=== PATIENT | male | born 1970 | race African-American/Black ===

== ENCOUNTER 2019-08-10 18:34 | Emergency (ER) | payer SELFPAY ==
[~2019-08-10] VITALS: Ht 180.3 cm; Wt 68.1 kg
[2019-08-10] MEDS ORDERED: NEOM10DR32 RIGHT EAR (19:30)
--- NOTE | 2019-08-10 19:31 | PHYS DOC ---
Past Medical History Past Medical History: No Pertinent History (CHELSEA ARMANDO APRN) Past Surgical History: Tonsillectomy, Other Additional Past Surgical Histo: ADENOIDECTOMY (CHELSEA ARMANDO APRN) Smoking Status: Current Every Day Smoker Alcohol Use: Occasionally (CHELSEA ARMANDO APRN) General Adult EDM: Chief Complaint: FOREIGNBODY EAR HPI: HPI: Patient is a 48 year old AA male who presents to the emergency department with complaints of falling from a earbud being stuck in his right ear for 2 days. Patient states 2 days ago when he removed his ear but he noticed that the spongy foam was missing from the earbud. He denies any decreased hearing. Patient denies any discharge or bleeding from his ear. He currently denies any fever, cough, sore throat, body aches, fatigue, headache, nausea, vomiting, diarrhea, abdominal pain, or rash. He currently rates his pain a 2 out of 10 on the pain scale, he denies any alleviating or exacerbating factors. (CHELSEA ARMADNO APRN) Review of Systems: Review of Systems: Constitutional: Denies fever or chills. [] Eyes: Denies change in visual acuity. [] HENT: Denies nasal congestion or sore throat; see HPI. [] Respiratory: Denies cough or shortness of breath. [] Cardiovascular: Denies chest pain or edema. [] GI: Denies abdominal pain, nausea, vomiting, or diarrhea. [] Musculoskeletal: Denies back pain or joint pain. [] Integument: Denies rash. [] Neurologic: Denies headache Lymphatic: Denies swollen glands. [] Psychiatric: Denies depression or anxiety. [] (CHELSEA ARMANDO APRN) Heart Score: Risk Factors: Risk Factors: DM, Current or recent (<one month) smoker, HTN, HLP, family history of CAD, obesity. Risk Scores: Score 0 - 3: 2.5% MACE over next 6 weeks - Discharge Home Score 4 - 6: 20.3% MACE over next 6 weeks - Admit for Clinical Observation Score 7 - 10: 72.7% MACE over next 6 weeks - Early Invasive Strategies (CHELSEA ARMANDO APRN) Allergies: Allergies: Allergies Coded Allergies Type Severity Reaction Last Updated Verified No Known Drug Allergies 08/10/19 No (CHELSEA ARMANDO APRN) Physical Exam: PE: Constitutional: Well developed, well nourished, no acute distress, non-toxic appearance. [] HENT: Normocephalic, atraumatic, bilateral external ears normal, nose normal; left TM normal, right TM normal, there is an abrasion located at 6:00 in the patient's right ear canal, no visible foreign body [] Eyes: PERRLA, EOMI, conjunctiva normal, no discharge. [] Neck: Normal range of motion, no stridor. [] Cardiovascular:Heart rate regular rhythm Lungs & Thorax: Respirations even and unlabored, no retractions, no respiratory distress Abdomen: soft, no tenderness Skin: Warm, dry, no erythema, no rash. [] Extremities: No cyanosis, ROM intact, no edema. [] Neurologic: Alert and oriented X 3, no focal deficits noted. [] Psychologic: Affect normal, judgement normal, mood normal. [] (CHELSEA ARMANDO APRN) Current Patient Data: Vital Signs: Vital Signs Date Time Temp Pulse Resp B/P (MAP) Pulse Ox O2 Delivery O2 Flow Rate FiO2 08/10/19 19:09 98.3 78 16 133/85 (101) 97 Room Air 98.3 (CHELSEA ARMANDO APRN) EKG: EKG: [] (CHELSEA ARMANDO APRN) Radiology/Procedures: Radiology/Procedures: [] (CHELSEA ARMANDO APRN) Course & Med Decision Making: Course & Med Decision Making Pertinent Labs and Imaging studies reviewed. (See chart for details) [] (CHELSEA ARMANDO APRN) Dragon Disclaimer: Dragon Disclaimer: This electronic medical record was generated, in whole or in part, using a voice recognition dictation system. (CHELSEA ARMANDO APRN) Departure Departure Impression: Primary Impression: Abrasion of right ear canal Qualified Codes: S00.411A - Abrasion of right ear, initial encounter Disposition: HOME, SELF-CARE Condition: STABLE Referrals: NO PCP (PCP) Patient Instructions: Ear Foreign Body, [id number] Additional Instructions: There is no foreign body present in your ear today. Fill the prescription and use it as directed. Do not put anything in your ear until your symptoms have resolved completely. Tylenol or ibuprofen as needed for pain. Follow-up with your primary care doctor next week. Return to the ER symptoms worsen. Scripts Neomycin/Polymyxin B Sulf/Hc ([id number] EAR SUSP) 10 Ml Drops.susp 4 DROP RIGHT EAR TID for 5 Days, #10 ML 0 Refills Prov: CHELSEA ARMANDO APRN 08/10/19 Justicifation of Admission Dx: Justifications for Admission: Justification of Admission Dx: N/A (CHELSEA ARMANDO APRN) Attending Signature Attending Signature I have reviewed the PA/APARTMENT MAINTENANCE WORKER's note and plan of care. I was available for consultation as needed during the patient's visit in the emergency department. I agree with the clinical impression, plan, and disposition. (ALY PIMENTEL DO) CHELSEA ARMANDO APRN Aug 10, 2019 19:31 ALY PIMENTEL DO Aug 11, 2019 05:10
[2019-08-10 19:51] VITALS: BP 128/85
== END 2019-08-10 19:51 | disposition home or self-care (01) ==
LOC: ER 18:34
DX: S00.411A Abrasion of right ear, initial encounter (principal); F17.200 Nicotine dependence, unspecified, uncomplicated; Z90.89 Acquired absence of other organs; Z98.890 Other specified postprocedural states; X58.XXXA Exposure to other specified factors, initial encounter; Y93.89 Activity, other specified; Y92.89 Other specified places as the place of occurrence of the external cause; Y99.8 Other external cause status
CPT/HCPCS: 99283

== ENCOUNTER 2019-12-20 09:55 | Emergency (ER) | payer SELFPAY ==
[~2019-12-20] VITALS: Ht 180.3 cm; Wt 68.1 kg
[~2019-12-20 09:55] MED LIST: NEOM10DR32 RIGHT EAR
[2019-12-20 10:11] VITALS: BP 124/72
[2019-12-20] MEDS ORDERED: CARB-171 EACH EAR (10:45)
--- NOTE | 2019-12-20 10:49 | PHYS DOC ---
Past Medical History Past Medical History: No Pertinent History Past Surgical History: Tonsillectomy, Other Additional Past Surgical Histo: ADENOIDECTOMY Smoking Status: Current Every Day Smoker Alcohol Use: Occasionally General Adult EDM: Chief Complaint: FOREIGNBODY EAR HPI: HPI: 49-year-old male who denies any significant past medical history, presents the ED with complaints of foreign body in right ear. Patient states he removed his headphones just prior to arrival and saw that the earbud cover was not on his headphone, has a foreign body sensation in right ear. Denies any hearing loss in either ear. No head injury. Takes no routine medications, on no anticoagulants. Review of Systems: Review of Systems: Constitutional: Denies fever or chills. [] Eyes: Denies change in visual acuity. [] HENT: Denies nasal congestion or sore throat. [] Respiratory: Denies cough or shortness of breath. [] Cardiovascular: Denies chest pain or edema. [] GI: Denies abdominal pain, nausea, vomiting, bloody stools or diarrhea. [] : Denies dysuria. [] Musculoskeletal: Denies back pain or joint pain. [] Integument: Denies rash. [] Neurologic: Denies headache, focal weakness or sensory changes. [] Endocrine: Denies polyuria or polydipsia. [] Lymphatic: Denies swollen glands. [] Psychiatric: Denies depression or anxiety. [] Heart Score: Risk Factors: Risk Factors: DM, Current or recent (<one month) smoker, HTN, HLP, family history of CAD, obesity. Risk Scores: Score 0 - 3: 2.5% MACE over next 6 weeks - Discharge Home Score 4 - 6: 20.3% MACE over next 6 weeks - Admit for Clinical Observation Score 7 - 10: 72.7% MACE over next 6 weeks - Early Invasive Strategies Allergies: Allergies: Allergies Coded Allergies Type Severity Reaction Last Updated Verified No Known Drug Allergies 08/10/19 No Physical Exam: PE: Constitutional: Well developed, well nourished, no acute distress, non-toxic appearance. [] HENT: Normocephalic, atraumatic, normal right ear exam-TM pearly white with no effusion, purple earbud cover and left ear canal-cannot visualize TM Eyes: EOMI, conjunctiva normal, no discharge. [] Neck: Normal range of motion, supple, Cardiovascular: S1 and S2 present Lungs & Thorax: Bilateral equal chest rise, speaking in full sentences Abdomen: soft, no tenderness, Skin: Warm, dry, no erythema, no rash. [] Extremities: No tenderness, no cyanosis, no clubbing, ROM intact, no edema. [] Neurologic: Alert and oriented X 3, normal motor function, normal sensory function, Psychologic: Affect normal, judgement normal, mood normal. [] Current Patient Data: Vital Signs: Vital Signs Date Time Temp Pulse Resp B/P (MAP) Pulse Ox O2 Delivery O2 Flow Rate FiO2 12/20/19 10:11 98.7 80 18 124/72 (89) 99 Room Air 98.7 EKG: EKG: [] Radiology/Procedures: Radiology/Procedures: Indication: Left ear foreign body Procedure: The area of the foreign body was left external auditory canal. The foreign body was then easily removed with alligator forceps-significant cerumen on foreign body. After the procedure tympanic membrane examined, no perforation, erythema, effusion, bleeding or hearing loss. No cerumen in left ear. The patient tolerated the procedure . Complications: None Course & Med Decision Making: Course & Med Decision Making Pertinent Labs and Imaging studies reviewed. (See chart for details) Concern for left ear foreign body 2/2 increased cerumen, easily removed with no complications. Will prescribe Debrox and recommend different headphones such that ear bud cover cannot be removed from audio source. Strict ED return precautions given for hearing loss, bleeding or ear pain/abnormal discharge. Encouraged urgent outpatient follow-up with PMD and ENT. Life-threatening processes were considered but are low suspicion at this time, given history and physical exam. Pt was educated on all prescription medications and adverse effects. All patient's questions were answered and pt was stable at time of discharge. Life/limb-threatening differential includes but is not limited to, auricular hematoma or perichondritis, malignant otitis externa, otitis externa or media, otomycosis, bullous myringitis, mastoiditis, hearing loss or vestibular disorder, tympanic membrane rupture, herpes zoster otic us, contact dermatitis or cholesteatoma. I spoken with the patient and her caregivers. I explained the patient's condition, diagnoses and treatment plan based on the information available to me at this time. I have answered the patient and her caregiver's questions and addressed any concerns. The patient and her caregivers have a good understanding of patient's diagnosis, condition and treatment plan as can be expected at this point. Vital signs have been stable. Patient's condition is stable and appropriate for discharge from the emergency department. Patient will pursue further outpatient evaluation with primary care physician or other designated or consulting physician as outlined in the discharge instructions. The patient and/or caregivers are agreeable to this plan of care and follow-up instructions have been explained in detail. The patient and/or caregivers have received these instructions in written form and have expressed an understanding of the discharge instructions. The patient and/or caregivers are aware that any significant change of condition or worsening of symptoms should prompt immediate return to this or the closest emergency department or call to [facility]. Domenica Disclaimer: Domenica Disclaimer: This electronic medical record was generated, in whole or in part, using a voice recognition dictation system. Departure Departure Impression: Primary Impression: Foreign body in left ear Additional Impression: Excessive cerumen in left ear canal Disposition: 01 DC HOME SELF CARE/HOMELESS Condition: STABLE Referrals: NO PCP (PCP) FOLLOW UP WITH FAMILY MEDICINE: Family Medicine Address: [address] [place] [address] Patient Instructions: Cerumen Plug, Ear Foreign Body Additional Instructions: FOLLOW UP WITH ENT: Otolaryngology Address: [address] [place] [address], [address] [place] [address] rad technologist [facility] Address: [address] [place] [address] EMERGENCY DEPARTMENT GENERAL DISCHARGE INSTRUCTIONS Thank you for coming to [facility] Emergency Department (ED) today and trusting us with you care. We trust that you had a positive experience in our Emergency Department. If you wish to speak to the department management, you may call the Director at [phone]. YOUR FOLLOW UP INSTRUCTIONS ARE FOLLOWS: 1. Do you have a private Doctor? If you do not have a private doctor, please ask for a resource list of physicians or clinics that may be able to assist you with follow up care. 2. The Emergency Physicain has interpreted your x-rays. The X-Ray specialist will also review them. If there is a change in the findings, you will be notified in 48 hours when at all possible. 3. A lab test or culture has been done, your results will be reviewed and you will be notified if you need a change in treatment. ADDITIONAL INSTRUCTIONS AND INFORMATION: 1. Your care today has been supervised by a physician who is specially trained in emergency care. Many problems require more than one evaluation for a complete diagnosis and treatment. We recommend that you schedule your follow up appointment as recommended to ensure complete treatment of you illness or injury. If you are unable to obtain follow up care and continue to have a problem, or if your condition worsens, we recommend that you return to the ED. 2. We are not able to safely determine your condition over the phone nor are we able to give sound medical advice over the phone. For these safety reasons, if you call for medical advice we will ask you to come to the ED for further evaluation. 3. If you have any questions regarding these discharge instructions please call the ED at [phone]. SAFETY INFORMATION: In the interest of safety, wellness, and injury prevention; we encourage you to wear your sealbelt, if you smoke; quite smoking, and we encourage family to use a protective helmet for bicycling and other sporting events that present an increased risk for head injury. IF YOUR SYMPTOMS WORSEN OR NEW SYMPTOMS DEVELOP, OR YOU HAVE CONCERNS ABOUT YOUR CONDITION; OR IF YOUR CONDITION WORSENS WHILE YOU ARE WAITING FOR YOUR FOLLOW UP APPOINTMENT; EITHER CONTACT YOUR PRIMARY CARE DOCTOR, THE PHYSICIAN WHOSE NAME AND NUMBER YOU WERE GIVEN, OR RETURN TO THE ED IMMEDIATELY. Scripts Carbamide Peroxide (EAR WAX REMOVAL) 15 Ml Drops 5 DROP EACH EAR DAILY PRN for ear wax buildup for 7 Days, #1 BOTTLE 0 Refills Prov: SHANNON LEE DO 12/20/19 SHANNON LEE DO Dec 20, 2019 10:49
== END 2019-12-20 10:58 | disposition home or self-care (01) ==
LOC: ER 09:55
DX: T16.1XXA Foreign body in right ear, initial encounter (principal); F17.200 Nicotine dependence, unspecified, uncomplicated; Z90.89 Acquired absence of other organs; Z98.890 Other specified postprocedural states; W45.8XXA Other foreign body or object entering through skin, initial encounter; Y93.89 Activity, other specified; Y92.89 Other specified places as the place of occurrence of the external cause; Y99.8 Other external cause status
CPT/HCPCS: 69200; 69210; 99284